=== PATIENT | female | born 1965 | race American Indian/Alaskan Native ===

== ENCOUNTER 2019-02-26 08:35 | Outpatient (CLI) | payer OTHER ==
--- NOTE | 2019-02-26 11:13 | Vascular Lab Report ---
PROCEDURE: VL VENOUS DUPLEX LE LT TECHNIQUE: Grayscale, color flow and spectral waveform images were obtained of bilateral lower extre mities. HISTORY: LEFT LOWER LEG SWELLING COMPARISON: None FINDINGS: There is no deep venous thrombosis seen in the left or right lower extremity. Flow is demonstrated by color flow and spectral waveform imaging. There is appropriate wall compression and augmentation. There is a poorly defined hypoechoic area at the posterolateral of left knee which could be edema. IMPRESSION: There is no evidence for DVT in either right or left lower extremity. This document is electronically signed by Alexa Tucker MD., February 26 2019 11:11:06 AM ET
== END 2019-02-26 08:36 | disposition home or self-care (01) ==
LOC: VAS 08:35
PROVIDERS: ATTEND Internal Medicine
DX: R22.42 Localized swelling, mass and lump, left lower limb (principal)